=== PATIENT | male | born 1985 | race Caucasian/White ===

== ENCOUNTER 2024-12-30 00:08 | Emergency (ER) | payer SELFPAY ==
[2024-12-30 00:09] VITALS: BP 150/103; PULSE 103; RESP 16; TEMP 36.1; O2SAT 99; BMI 32.2
--- NOTE | 2024-12-30 01:41 | EX.ED.DYSGE1 ---
HPI History of Present Illness Chief Complaint: Back Informant: patient and spouse/S.O. Narrative Narrative: Patient is a 39-year-old male who reports a past medical history of degenerative disc disease in his lumbar spine. He states that he underwent traction by a chiropractor previously which resolved his pain so he no longer went through with surgery. He states that he did not follow-up with them or currently and now has been having increased low back pain that feels similar nature to his past degenerative disc disease. He states that the other day he bent down and after standing up had increased pain. He states he is now seeing the chiropractor but despite doing 1 treatment with traction and taking [id number] medications his pain has persisted and therefore he comes in for evaluation. She denies any loss of bowel or bladder control or IV drug use. He denies any recent injections or surgical procedures on his low back as well. [facility] Medical History (Updated 12/30/24 @ 01:[address] Alen Lacey, DO) Spinal arthritis Degenerative disk disease Home Medications ?Medication ?Instructions ?Recorded ?Last Taken ?Type methocarbamol 500 mg tablet 1,000 mg (2 x 500 mg) PO 4X/DAY 12/30/24 Unknown Rx PRN Muscle pain/spasm #56 tabs oxycodone-acetaminophen 5 mg-325 1 tab PO Q6H PRN pain 3 days #12 12/30/24 Unknown Rx mg tablet (Percocet) tabs prednisone 20 mg tablet 40 mg (2 x 20 mg) PO DAILY 7 days 12/30/24 Unknown Rx #14 tabs Allergy/AdvReac Type Severity Reaction Status Date / Time No Known Allergies Allergy Verified 12/30/24 00:09 Social History Smoking Status: Never smoker ROS ROS ED Constitutional Constitutional ED: Denies chills or fever(s) Eyes Eyes: Denies change in vision ENT ENT ED: Denies sore throat Cardiovascular Cardiovascular: Denies chest pain Respiratory/Chest Respiratory/Chest: Denies cough or dyspnea Gastrointestinal Gastrointestinal: Denies abdominal pain, diarrhea, nausea or vomiting Genitourinary Genitourinary ED: Denies dysuria or hematuria Musculoskeletal Musculoskeletal: Reports back pain Integumentary Denies rash Neurologic Neurologic: Denies headache(s), paresthesias or weakness Hematologic/Lymphatic Hematologic/Lymphatic: Denies easy bleeding or easy bruising EXAM Physical Exam Const Vital Signs: 12/30/24 00:09 12/30/24 01:52 Temperature 97 F L 98 F Temperature Source Temporal Pulse Rate 103 H 77 Respiratory Rate 16 16 Blood Pressure 150/103 H 121/80 H Blood Pressure Mean 118 93 Pulse Ox 99 100 Oxygen Delivery Method Room Air Positive well nourished and well developed General Appearance ED: well developed; Negative for pallor HEENT HEENT Narrative: Normocephalic atraumatic Eyes PERRL and EOMs intact bilaterally General Eye ED: Negative for scleral icterus Neck supple Resp normal respiratory effort and clear to auscultation bilaterally Cardio regular rate and regular rhythm Rate: other Other Details: Regular rate and rhythm without murmurs rubs or gallops Radial and carotid pulses are equal and symmetric GI normal to inspection, nondistended, normoactive bowel sounds, non-tender, non-distended and no masses GI Narrative: No voluntary guarding or rigidity or pulsatile mass Auscultation: normoactive bowel sounds Palpation: soft Back/Spine Back/Spine Narrative: No bony deformity or step-off of the thoracic or lumbar spine. There is mild midline pain on palpation in the lumbar region No saddle anesthesia. Negative straight leg raise. No clonus or Babinski. Patellar reflexes are plus 2 out of 4 bilaterally. Patient does have increased pain with extension and rotation of the back No overlying soft tissue changes to suggest trauma or infection Extremity normal to inspection Neuro oriented x3, CN's II-XII intact bilaterally and no sensory deficits noted Sensorium / Orientation: alert Psych mental status grossly normal Skin no rashes or lesions noted and no wounds General Skin Exam: Negative for jaundice or pallor MDM MDM MDM Narrative Medical decision making narrative: Patient arrived to the ER hypertensive but this is most likely secondary to pain. He denies loss of bowel bladder control or IV drug use or recent surgical interventions going against cauda equina epidural abscess or discitis. As reports a history of underlying back disease and also reports that he is not continue to follow-up with chiropractor which has helped his symptoms in the past I do feel this is most likely worsening of his degenerative disc disease as well as lumbosacral strain based on the location of his pain and the fact that is worse with motion. As he does not have any red flag symptoms I do not feel the need for workup. Patient was medicated in the ER and after receiving this medication did have improvement of his pain and was able to ambulate. Therefore there is no need for further intervention or workup and he is otherwise safe for discharge History & Record Review Discussion w/independent historian: Patient and Significant other Discharge Plan Triage Chief Complaint: Back ED Provider: Alen Lacey Dx/Rx/DC Orders Clinical Impression: Degenerative disc disease, lumbar, Acute myofascial strain of lumbosacral region Instructions: Understanding Lumbosacral Strain, ED Degenerative Disk Disease Prescriptions: New oxycodone-acetaminophen [Percocet] 5-325 mg tablet 1 tab PO Q6H PRN (Reason: pain) 3 Days Qty: 12 0RF prednisone 20 mg tablet 40 mg PO DAILY 7 Days Qty: 14 0RF methocarbamol 500 mg tablet 1,000 mg PO 4X/DAY PRN (Reason: Muscle pain/spasm) Qty: 56 0RF Primary Care Provider: Care Physician,No Primary Activity Restrictions/Additional Instructions: Please take the prescribed medication as directed to help control your symptoms. Continue to stretch and heat the back to reduce pain and speed healing and continue to follow-up with your chiropractor for treatment. Return to the ER should you have any further concern Print Language: Polish Disposition Disposition: Home, Self Care Discharge Date/Time: 12/30/24 02:16
[2024-12-30 01:52] VITALS: BP 121/80; PULSE 77; RESP 16; TEMP 36.6; O2SAT 100
== END 2024-12-30 02:16 | disposition home or self-care (01) ==
PROVIDERS: Emergency Provider Emergency Medicine; Visit Provider Emergency Medicine
DX: S39.012A Strain of muscle, fascia and tendon of lower back, initial encounter (principal); M51.369 Other intervertebral disc degeneration, lumbar region without mention of lumbar back pain or lower extremity pain; X50.1XXA Overexertion from prolonged static or awkward postures, initial encounter
CPT/HCPCS: 96372; 99282

== ENCOUNTER 2025-01-10 10:15 | Emergency (ER) | payer SELFPAY ==
[2025-01-10 10:15] VITALS: BP 144/90; PULSE 107; RESP 16; TEMP 36.8; O2SAT 95
--- NOTE | 2025-01-10 10:38 | EDS_ITS ---
HPI History of Present Illness Chief Complaint: Back Detail of Chief Complaint: Back pain Informant: patient Narrative Narrative: Patient presents with back pain worse over the last 2 weeks. He has history of chronic back pain that flares up once or twice a year. Patient states in July he had a exacerbation and had an MRI that showed degenerative disc disease and bulging disc in his low back. Patient states he was seeing a chiropractor who referred him to [place] to have surgery. Patient states eventually his pain resolved so he canceled his appointment to go to [place] to have surgery on his back. 2 weeks ago slowly started having more discomfort in his low back. He describes some pain rating down his left leg. He denies weakness of extremities. He denies change in bowel or bladder function. Patient [place] any trauma to his back. Denies fever or recent illness. [facility] Medical History (Updated 01/10/25 @ 11:[address] Yanet Mujica, DO) Spinal arthritis Degenerative disk disease Home Medications ?Medication ?Instructions ?Recorded ?Last Taken ?Type methocarbamol 500 mg tablet 1,000 mg (2 x 500 mg) PO 4 X/DAY 12/30/24 Unknown Rx PRN Muscle pain/spasm #56 tabs oxycodone-acetaminophen 5 mg-325 1 tab PO Q6H PRN pain 3 days #12 12/30/24 Unknown Rx mg tablet (Percocet) tabs prednisone 20 mg tablet 40 mg (2 x 20 mg) PO DAILY 7 days 12/30/24 Unknown Rx #14 tabs cyclobenzaprine 10 mg tablet 10 mg PO TID PRN Muscle S pasm #20 01/10/25 Unknown Rx TABLETS methylprednisolone 4 mg tablets in 4 mg PO DAILY #21 t abs 01/10/25 Unknown Rx a dose pack (Medrol (Yeison)) oxycodone-acetaminophen 5 mg-325 1 tab PO Q8H PRN pain 3 days #15 01/10/25 Unknown Rx mg tablet (Percocet) tabs Allergy/AdvReac Type Severity Reaction Status Date / Time No Known Allergies Allergy Verified 01/10/25 10:15 Social History Smoking Status: Never smoker ROS ROS ED Review of Systems ROS Unobtainable: other Constitutional Constitutional ED: Reports lethargy; Denies chills, fever(s), sweats or weight loss Eyes Eyes: Denies blurry vision, change in vision or diplopia ENT ENT ED: Denies rhinorrhea or sore throat Cardiovascular Cardiovascular: Denies chest pain, orthopnea or racing heartbeat Respiratory/Chest Respiratory/Chest: Denies cough, dyspnea, dyspnea on exertion, orthopnea or sputum Gastrointestinal Gastrointestinal: Denies abdominal pain, diarrhea, nausea or vomiting Genitourinary Genitourinary ED: Denies dysuria, hematuria or urinary frequency Musculoskeletal Musculoskeletal: Reports back pain; Denies arthralgias, myalgias or neck pain Integumentary Denies abscess, Abrasions or rash Neurologic Neurologic: Denies headache(s) or weakness Psychiatric Psychiatric: Denies anxiety, depression or suicidal thoughts Endocrine Endocrinology: Denies polydipsia, polyphagia or polyuria Hematologic/Lymphatic Hematologic/Lymphatic: Denies easy bleeding, easy bruising or lymphadenopathy Allergic/Immunologic Allergic/Immunologic ED: Denies mouth swelling, tongue swelling or urticaria EXAM Physical Exam Const Vital Signs: 01/10/25 10:15 Temperature 98.3 F Temperature Source Oral Pulse Rate 107 H Respiratory Rate 16 Blood Pressure 144/90 H Blood Pressure Mean 108 Pulse Ox 95 Oxygen Delivery Method Room Air Positive well nourished and well developed General Appearance ED: well developed and NAD HEENT Reports TM's clear and moist mucous membranes normocephalic and atraumatic; Negative for trauma or tenderness Tympanic Membrane ED: Yes TM's clear Eyes PERRL and EOMs intact bilaterally General Eye ED: Negative for pale conjunctiva or scleral icterus Neck no lymphadenopathy, supple and no JVD General: Negative for tenderness Chest Wall inspection of chest normal and palpation of chest normal Chest: Negative for tenderness Resp normal respiratory effort and clear to auscultation bilaterally Effort and Inspection: Negative for respiratory distress or pain with movement Auscultation: Negative for rhonchi, wheezes or diminished lung sounds Cardio regular rate, regular rhythm, S1 normal heart sound, S2 normal heart sound and no murmurs Peripheral Pulses: pulses 2+ throughout GI normal to inspection, nondistended, normoactive bowel sounds, soft to palpation, non-tender, non-distended and no masses Back/Spine no CVA tenderness and no thoracic nor lumbar tenderness Back/Spine Narrative: Patient has positive straight leg raises bilaterally about 30 degrees while supine. Deep tendon reflexes plus 2 out of 4 bilaterally at the patella and Achilles. He has normal L5 extension bilaterally. He has normal sensation to light touch. Extremity normal to inspection General Extremety ED: Negative for edema General Extremity: Negative for edema Neuro oriented x3, CN's II-XII intact bilaterally, no sensory deficits noted and gait normal Sensorium / Orientation: awake, alert, oriented to person, oriented to place and oriented to time Motor Exam: strength 5/5 throughout and strength abnormal Psych mental status grossly normal Skin no rashes or lesions noted and no wounds MDM MDM MDM Narrative Medical decision making narrative: Patient presents with back pain that is atraumatic and chronic with intermittent exacerbations. Clinically looks well. No red flags symptoms of cauda equina. He was medicated Dilaudid as well as Norflex and Toradol. Patient was given prednisone. He will be discharged to home and referred to pain management as well as back specialist. Will treat with Percocet as well as Flexeril and prednisone. Advised return if weakness in extremity, change in bowel or bladder function, or condition should worsen anyway. Discharge Plan Triage Chief Complaint: Back ED Provider: Yanet Mujica Dx/Rx/DC Orders Clinical Impression: Back pain, Acute lumbar radiculopathy Instructions: ED Back Pain (Acute or Chronic), ED Sciatica Prescriptions: New cyclobenzaprine 10 mg tablet 10 mg PO TID PRN (Reason: Muscle Spasm) Qty: 20 0RF oxycodone-acetaminophen [Percocet] 5-325 mg tablet 1 tab PO Q8H PRN (Reason: pain) 3 Days Qty: 15 0RF methylprednisolone [Medrol (Yeison)] 4 mg tablets,dose pack 4 mg PO DAILY Qty: 21 0RF No Action oxycodone-acetaminophen [Percocet] 5-325 mg tablet 1 tab PO Q6H PRN (Reason: pain) 3 Days Qty: 12 0RF prednisone 20 mg tablet 40 mg PO DAILY 7 Days Qty: 14 0RF methocarbamol 500 mg tablet 1,000 mg PO 4X/DAY PRN (Reason: Muscle pain/spasm) Qty: 56 0RF Primary Care Provider: Care Physician,No Primary Referrals: Dylan Rader DO [Non-Staff] - 3-5 Days Kanu Franz MD [Med Staff - Active Staff] - 3-5 Days Care Physician,No Primary [Primary Care Provider] - Print Language: Kosovan Disposition Disposition: Home, Self Care
[2025-01-10] MEDS: Orphenadrine 60 MG/2 ML Ampul IM (10:48)
--- OUTSIDE RECORDS SUMMARY | 2025-01-10 11:15 | XMS RPT_ITS | CCD ---
Author Organization [facility] Care Team Providers Care Director Television Name Role Phone LI NUNEZ DC Attending Unavailable LI NUNEZ DC Primary Care Unavailable LI NUNEZ DC Admitting Unavailable ASHA BURROWS Attending Unavaila ble Dr. Alen Lacey DO Emergency Provider [phone] Care Physician, No Primary Primary Care Provider Unavailable Alen Lacey Attending Unavailable Care Physician, No Primary Primary Care Unava ilable Medications Current Medications Medication Drug Class(es) Dates Sig (Normalized) Sig (Original) acetaminophen 325 mg / oxyCODONE hydrochloride 5 mg oral tablet (1 source) Opioid Agonist Start: 12-30-2024 take 1 tablet by mouth every six hours as needed for pain Oxycodone-Acetaminop hen (Percocet) 5-325 mg tablet Active 1 {tbl} PO EVERY 6 HOURS as needed for pain 12 3 0 December 30, 2024 Acute myofascial strain of lumbosacral region Degeneration of intervertebral disc of lumbar region Strain of muscle, fascia and tendon of lower back, initial encounter Start: 12-30-2024 take 1 tablet by sintia th every six hours as needed for pain Oxycodone-Acetaminophen (Percocet) 5-325 mg tablet Active 1 {tbl} PO EVERY 6 HOURS as needed for pain 12 3 0 December 30, 2024 Acute myofascial strain of lumbosacral region Degeneration of intervertebral disc of lumbar region Strain of muscle, fascia and tendon of lower back, initial encounter methocarbamol 500 mg oral tablet (1 source) Muscle Relaxant Start: 12-30-2024 take 2 tablets by mouth four times daily as needed for pain Methocarbamol 500 mg tablet Active 1000 mg PO 4 TIMES DAILY as needed for Muscle pain/spasm 56 0 December 30, 2024 1:43am predniSONE 20 mg oral tablet (1 source) Start: 12-30-2024 take 2 tablets by mouth once daily Prednisone 20 mg tablet Active 40 mg PO DAILY 14 7 0 December 30, 2024 12:00am Problems Problem Classification Problem Date Documented Date Episodic/Chronic Spondylosis; intervertebral disc disorders; other back problems (1 source) Degeneration of lumbar intervertebral disc; Translations: [Degeneration of intervertebral disc of lumbar region] 12-30-2024 Chronic Sprains and strains (2 sources) Lower back injury; Translations: [Strain of muscle, fascia and tendon of lower back, initial encounter] Onset: 12-30-2024 12-30-2024 Episodic Unclassified (1 source) Other intervertebral disc degeneration, lumbar region without mention of lumbar back pain or lower extremity pain; Translations: [Other intervertebral disc degeneration, lumbar region without mention of lumbar back pain or lower extremity pain] Onset: 12-30-2024 Results Test Name Value Interpretation Reference Range Facility Emergency Department Summary on 12-30-2024 Emergency Department Summary [facility] Medical Records Department [address] [place] [address] Emergency Department Summary 12/30/24 MR#: [id number] Acct: [id number] Name: MIRIAM HOWE Rep #: [id number] : 1985 39 From: Alen Lacey DO PCP: Care Physician,No Primary Status:DEP ER Location: ED HPI History of Present Illness Chief Complaint: Back Informant: patient and spouse/S.O. Narrative Narrative: Patient is a 39-year-old male who reports a past medical history of degenerative disc disease in his lumbar spine. He states that he underwent traction by a chiropractor previously which resolved his pain so he no longer went through with surgery. He states that he did not follow-up with them or currently and now has been having increased low back pain that feels similar nature to his past degenerative disc disease. He states that the other day he bent down and after standing up had increased pain. He states he is now seeing the chiropractor but despite doing 1 treatment with traction and taking [id number] medications his pain has persisted and therefore he comes in for evaluation. She denies any loss of bowel or bladder control or IV drug use. He denies any recent injections or surgical procedures on his low back as well. [facility] Medical History (Updated 12/30/24 @ 01:[address] Alen Andes, DO) Spinal arthritis Degenerative disk disease Home Medications ???Medication ???Instructions ???Recorded ???Last Taken ???Type methocarbamol 500 mg tablet 1,000 mg (2 x 500 mg) PO 4X/DAY Unknown Rx PRN Muscle pain/spasm #56 tabs oxycodone-acetamino phen 5 mg-325 1 tab PO Q6H PRN pain 3 days #12 0 12/30/24 Unknown Rx mg tablet (Percocet) tabs prednisone 20 mg tablet 40 mg (2 x 20 mg) PO DAILY 7 days 12/30/24 Unknown Rx #14 tabs Allergy/AdvReac Type Severity Reaction Status Date / Time No Known Allergies Allergy Verified 12/30/24 00:09 Social History Smoking Status: Never smoker ROS ROS ED Constitutional Constitutional ED: Denies chills or fever(s) Eyes Eyes: Denies change in vision ENT ENT ED: Denies sore throat Cardiovascular Cardiovascular: Denies chest pain Respiratory/Chest Respiratory/Chest: Denies cough or dyspnea Gastrointestinal Gastrointestinal: Denies abdominal pain, diarrhea, nausea or vomiting Genitourinary Genitourinary ED: Denies dysuria or hematuria Musculoskeletal Musculoskeletal: Reports back pain Integumentary Denies rash Neurologic Neurologic: Denies headache(s), paresthesias or weakness Hematologic/Lymphat ic Hematologic/Lymphat ic: Denies easy bleeding or easy bruising EXAM Physical Exam Const Vital Signs: 12/30/24 00:09 12/30/24 01:52 Temperature 97 F L 98 F Temperature Source Temporal Pulse Rate 103 H 77 Respiratory Rate 16 16 Blood Pressure 150/103 H 121/80 H Blood Pressure Mean 118 93 Pulse Ox 99 100 Oxygen Delivery Method Room Air Positive well nourished and well developed General Appearance ED: well developed; Negative for pallor HEENT HEENT Narrative: Normocephalic atraumatic Eyes PERRL and EOMs intact bilaterally General Eye ED: Negative for scleral icterus Neck supple Resp normal respiratory effort and clear to auscultation bilaterally Cardio regular rate and regular rhythm Rate: other Other Details: Regular rate and rhythm without murmurs rubs or gallops Radial and carotid pulses are equal and symmetric GI normal to inspection, nondistended, normoactive bowel sounds, non-tender, non-distended and no masses GI Narrative: No voluntary guarding or rigidity or pulsatile mass Auscultation: normoactive bowel sounds Palpation: soft Back/Spine Back/Spine Narrative: No bony deformity or step-off of the thoracic or lumbar spine. There is mild midline pain on palpation in the lumbar region No saddle anesthesia. Negative straight leg raise. No clonus or Babinski. Patellar reflexes are plus 2 out of 4 bilaterally. Patient does have increased pain with extension and rotation of the back No overlying soft tissue changes to suggest trauma or infection Extremity normal to inspection Neuro oriented x3, CN's II-XII intact bilaterally and no sensory deficits noted Sensorium / Orientation: alert Psych mental status grossly normal Skin no rashes or lesions noted and no wounds General Skin Exam: Negative for jaundice or pallor MDM MDM MDM Narrative Medical decision making narrative: Patient arrived to the ER hypertensive but this is most likely secondary to pain. He denies loss of bowel bladder control or IV drug use or recent surgical interventions going against cauda equina epidural abscess or discitis. As reports a history of underlying back disease and also reports that he is not continue to follow-up with (more content not included)... Normal [facility] LABORATORYOrdered By: Hillary Burden on 08-12-2024 MRSA (PCR) Not Detected 1 (08/12/24 12:28 PM) Normal Not Detected [facility] Comment on above: Result Comment: [place] [id number] MRSA PCR Int MRSA DNA not detected by Real-Time Polymerase Chain Reaction (PCR). A negative result may be due to intermittent colonization. Colonization may vary depending on patient treatment, patient status, or exposure to high-risk environments.As with all PCR based in vitro diagnostic tests, extremely low levels of target below the limit of detection of the assay may be detected, but results may not be reproducible. Invalid Interpretation Code Auto Viro/Sero SS MRSAPCRon 08-12-2024 MRSA (PCR) Not detected Normal Not Detected [facility] Comment on above: Result Comment: [place] [id number] Performed By: #### M RSAPCR #### [address] [id number] MRSA PCR Int Normal [facility] Comment on above: Result Comment: MRSA DNA not detected by Real-Time Polymerase Chain Reaction (PCR). A negative result may be due to intermittent colonization. Colonization may vary depending on patient treatment, patient status, or exposure to high-risk environments. As with all PCR based in vitro diagnostic tests, extremely low levels of target below the limit of detection of the assay may be detected, but results may not be reproducible. See Below Performed By: #### M RSAPCR #### [facility] [address] [place] [id number] MR LUMBAR SP WO CONTRASTon 1 08-13-2023 MR LUMBAR SP WO CONTRAST [address] [address] Patient: MIRIAM HOWE Phone#: : 1985 Age: 38 Gender: M Pt. Type: Out Account: [id number] Location: Ordering: LI NUNEZ Exam Date: 06/12/2024/12:55 Family Phys: Charge Code: [id number] Physician: Jay Order #: [id number] Dose#: PROCEDURE: MRI LUMBAR SPINE WITHOUT CONTRAST COMPARISON: None. INDICATIONS: Possible disc degeneration TECHNIQUE: A variety of imaging planes and parameters were utilized for visualization of suspected pathology. FINDINGS: PARASPINAL AREA: Normal with no visible mass. BONES: Vertebral bodies are maintained in. There is normal marrow signal. CORD/CAUDA EQUINA: Conus terminates at L1. LUMBAR DISC LEVELS: L1-L2: No significant disc/facet abnormality, spinal stenosis, or foraminal stenosis. L2-L3: Facet arthropathy without significant neural foraminal narrowing. L3-L4: Disc desiccation, mild circumferential disc bulge and ligamentum flavum hypertrophy contributes to mild spinal canal narrowing and mild bilateral neural foraminal narrowing. L4-L5: Circumferential disc bulge contributes to moderate left and mild right neural foraminal narrowing. There is mild spinal canal narrowing. There is a posterior annular tear, series 8, image 9. There is disc desiccation. L5-S1: There is disc desiccation. There is a midline posterior annular tear, series 8 image 9 CONCLUSION: 1. L4-5 and L5-S1 posterior annular tears 2. Multilevel degenerative disc disease with varying degrees of foraminal narrowing, most significant at L4-5. Dictated by: Sheryl Baugh MD on 06/15/2024 at 13:18 Approved by: Sheryl Baugh MD on 06/15/2024 at 13:25 Normal [facility] Vital Signs Date Time Vital Sign Value Performing Clinician Neilrachel pearl 12-30-2024 01:52-0400 Body temperature 98 [degF] Dr. Alen Lacey DO Work Phone: [facility] 12-30-2024 01:52-0400 Diastolic blood pressure 80 mm[Hg] Dr. Alen Lacey DO Work Phone: [facility] 12-30-2024 01:52-0400 Heart rate 77 /min Dr. Alen Lacey DO Work Phone: [facility] 12-30-2024 01:52-0400 Respiratory rate 16 /min Dr. Alen Lacey DO Work Phone: [facility] 12-30-2024 01:52-0400 SaO2% (BldA) [Mass fraction] 100 % Dr. Alen Lacey DO Work Phone: [facility] 12-30-2024 01:52-0400 Systolic blood pressure 121 mm[Hg] Dr. Alen Lacey DO Work Phone: [facility] 12-30-2024 00:09-0400 Body height 185.[address] Alen Lacey DO Work Phone: [facility] 12-30-2024 00:09-0400 Body mass index (BMI) [Ratio] 32.2 kg/m2 Dr. Alen Lacey DO Work Phone: [facility] 12-30-2024 00:09-0400 Body weight 110.[address] Alen Lacey DO Work Phone: [facility] Encounters Encounter Date Encounter Type Care Provider Facility Start: 12-30-2024 End: 12-30-2024 Emergency department patient visit Dr. Alen Lacey DO Work Phone: -Emergency Department Work Phone: Start: 08-12-2024 End: 08-12-2024 ambulatory ASHA SHEN Facility:[facility] Start: 08-12-2024 End: 08-12-2024 Patient encounter procedure ASHA KIRAN [employer] [facility] Start: 06-12-2024 End: 06-12-2024 ambulatory [facility] Plan of Treatment Date Care Activity Detail Author Start: 12-30-2024 [facility] Patient Education Understanding Lumbosacral Strain ED Degenerative Disk Disease [facility] Work Phone: Payers Date Payer Category Payer Self-pay 2024 Unknown 2024 Unknown [id number] 1985 Unknown [id number] 1985 Unknown [id number] Unknown [id number] Social History Date Type Detail Facility Tobacco smoking status [facility] Start: 1985 Sex Assigned At Male A [facility] Start: 08-12-2024 Sex Male (finding) [facility] Start: 12-30-2024 [facility] Evaluation + Plan note Note Date & Type Note Facility Evaluation + Plan note No data available for this section [facility] Evaluation note Note Date & Type Note Facility Evaluation note No assessment information availa ble [facility] Work Phone: Hospital Discharge instructions Note Date & Type Note Facility Hospital Discharge instructions No data available for this section [facility] Hospital Discharge instructions Note Date & Type Note Facility Hospital Discharge instructions Additional Instructions Please take the prescribed medication as directed to help control your symptoms. Continue to stretch and heat the back to reduce pain and speed healing and continue to follow-up with your chiropractor for treatment. Return to the ER should you have any further concern [facility] Work Phone: Progress note Note Date & Type Note Facility Progress note No data available for this section [facility] Reason for referral (narrative) Note Date & Type Note Facility Reason for referral (narrative) No reason for referral information available [facility] Work Phone: Summary Purpose Family History No Family History Records Found No data available for this section No Family History Records FoundNo Family History Records Found Advance Directives No Advanced Directives Records Found Advance Directive Response Recorded Date/ Time Do you have a Healthcare Power of Speed Winder? No December 30, 2024 12:31am Chief Complaint and Reason for Visit Chief Complaint Admit Date BACK PAIN December 30, 2024 12:08 am Additional Source Comments (unrecognized sect ion and content) No Status Records FoundNo Status Records FoundNo Status Records Found INFORMATION SOURCE (unrecogn ized section and content) DATE CREATED AUTHOR 06/17/2024 [facility] DATE CREATED AUTHOR AUTHOR'S ORGANIZ ATION 08/14/2024 [facility] DATE CREATED AUTHOR AUTHOR'S ORGANIZ ATION 12/31/2024 [facility] Care Teams (unrecognized sec tion and content) Team Status: Active Member Role/Relationship Status Dates No Primary Care Physician Primary Care Provider Active Team Status: Inactive Member Role/Relationship Status Dates Dr. Alen Lacye , Emergency Provider Active Start: December 30, 2024 End: December 30, 2024 No Primary Care Physician Primary Care Provider Active Start: December 30, 2024 End: December 30, 2024 Goals (unrecognized section and content) Goals may be documented in a n alternate section FOR RECORDS PERTAINING TO PATIENTS WHO ARE OR HAVE BEEN ENROLLED IN A CHEMICAL DEPENDENCY/SUBSTANCEABUSE PROGRAM, SOME INFORMATION MAY BE OMITTED. This clinical summary was aggregated from multiple sources. Caution should be exercised in using it in the provision of clinical care. This summary normalizes information from multiple sources, and as a consequence, information in this document may materially change the coding, format and clinical context of patient data. In addition, data may be omitted in some cases. CLINICAL DECISIONS SHOULD BE BASED ON THE PRIMARY CLINICAL RECORDS. [facility] provides no warranty or guarantee of the accuracy or completeness of information in this document.
[2025-01-10 11:23] VITALS: BP 144/90; PULSE 107; RESP 16; TEMP 36.8; O2SAT 95
== END 2025-01-10 11:45 | disposition home or self-care (01) ==
PROVIDERS: Emergency Provider Emergency Medicine; Visit Provider Emergency Medicine
DX: M54.16 Radiculopathy, lumbar region (principal)
CPT/HCPCS: 96372; 99282